=== PATIENT | male | born 1950 | race Caucasian/White ===

== ENCOUNTER 2016-07-18 09:42 | Emergency (ER) | payer OTHER ==
[~2016-07-18] VITALS: Ht 182.9 cm; Wt 123.6 kg
[~2016-07-18 09:42] MED LIST: ACTICLATE150 MG PO; ACTOS30 MG PO; ADVAIR 250/501 DISK IH; AFRIN,GENASAL D15 ML BOTH NARES; AZOR 5/20 MG1 TABLET; CELEXA20 MG PO; DELTASONE20 M1 PO; DIPHENOXYLATE/1 EACH PO; GLUCOPHAGE500 MG PO; KEFLEX500 MG PO; OXYCONTIN10 MG PO; PIOGLITAZONE HC30 MG; PROAIR HFA8.5 GM IH; PROCHLORPERAZIN10 MG PO; PROMETHAZINE HC25 M1 PO; SIMVASTATIN40 MG; SIMVASTATIN40 MG PO; TRAZODONE HCL50 MG PO
[2016-07-18 16:00] VITALS: BP 73/42
== END 2016-07-18 16:24 | disposition hospice, home (50) ==
LOC: EME → EDBD 09:42 → EME 09:42
DX: G89.3 Neoplasm related pain (acute) (chronic) (principal); R52 Pain, unspecified; C18.9 Malignant neoplasm of colon, unspecified; C78.7 Secondary malignant neoplasm of liver and intrahepatic bile duct; I10 Essential (primary) hypertension; E11.9 Type 2 diabetes mellitus without complications; Z88.5 Allergy status to narcotic agent; Z79.84 Long term (current) use of oral hypoglycemic drugs
CPT/HCPCS: 99281; 99285; J3010; J7030